=== PATIENT | female | born 1965 | race Caucasian/White ===

== ENCOUNTER → 2018-04-01 | Outpatient (CLI) | payer BC ==
--- NOTE | 2018-04-02 10:03 | MM ---
Reason for exam: screening (asymptomatic). Last mammogram was performed 1 year and 2 months ago. History: Patient had first child at age 33. Family history of breast cancer in maternal aunt at age 60. Taking hormonal contraceptives for 18 years beginning at age 21. Physical Findings: A clinical breast exam by your physician is recommended on an annual basis and results should be correlated with mammographic findings. MG Screening Mammo w CAD Bilateral CC and MLO view(s) were taken. Prior study comparison: January 30, 2017, bilateral MG screening mammo w CAD. November 09, 2015, right breast MG work up mamm w CAD RT. There are scattered fibroglandular densities. There is no discrete abnormality. No significant changes when compared with prior studies. ASSESSMENT: Negative, BI-RAD 1 RECOMMENDATION: Routine screening mammogram of both breasts in 1 year.
== END | disposition home or self-care (01) ==
LOC: RADMAMWWP 11:17
PROVIDERS: ATTEND Obstetrics & Gynecology
DX: Z12.31 Encounter for screening mammogram for malignant neoplasm of breast (principal)
CPT/HCPCS: 77067

== ENCOUNTER → 2019-08-09 | Outpatient (CLI) | payer BC ==
--- NOTE | 2019-08-11 08:14 | MM ---
Reason for exam: screening (asymptomatic). Last mammogram was performed 1 year and 4 months ago. History: Patient had first child at age 33. Family history of breast cancer in maternal aunt at age 60. Taking hormonal contraceptives for 18 years beginning at age 21. Physical Findings: A clinical breast exam by your physician is recommended on an annual basis and results should be correlated with mammographic findings. MG Screening Mammo w CAD Bilateral CC and MLO view(s) were taken. Prior study comparison: April 01, 2018, bilateral MG screening mammo w CAD. January 30, 2017, bilateral MG screening mammo w CAD. The breast tissue is heterogeneously dense. This may lower the sensitivity of mammography. No significant changes when compared with prior studies. ASSESSMENT: Benign, BI-RAD 2 RECOMMENDATION: Routine screening mammogram of both breasts in 1 year.
== END | disposition home or self-care (01) ==
LOC: RADMAMWWP 09:26
PROVIDERS: ATTEND Internal Medicine Geriatric Medicine
DX: Z12.31 Encounter for screening mammogram for malignant neoplasm of breast (principal); Z80.3 Family history of malignant neoplasm of breast
CPT/HCPCS: 77067

== ENCOUNTER 2020-05-05 10:26 | Emergency (ER) | payer BC ==
[2020-05-05 10:32] VITALS: RESP 18; TEMP 97.7
[2020-05-05 11:12] LABS: Basophils # (A) 0.1 k/uL (0-0.2); Basophils % (A) 1 %; Eosinophils # (A) 0.5 k/uL (0-0.7); Eosinophils % (A) 8 %; HCT 41.2 % (34.0-46.0); HGB 14.2 gm/dL (11.4-16.0); Lymphocytes # (A) 1.7 k/uL (1.0-4.8); Lymphocytes % (A) 26 %; MCH 29.2 pg (25.0-35.0); MCHC 34.5 g/dL (31.0-37.0); MCV 84.9 fL (80.0-100.0); Mean Platelet Volume 7.9; Monocytes # (A) 0.5 k/uL (0-1.0); Monocytes % (A) 8 %; Neutrophils # (A) 3.5 k/uL (1.3-7.7); Neutrophils % (A) 55 %; Platelet Count 257 k/uL (150-450); RBC 4.86 m/uL (3.80-5.40); RDW 12.4 % (11.5-15.5); WBC 6.3 k/uL (3.8-10.6)
[2020-05-05 11:20] LABS: Albumin 4.2 g/dL (3.5-5.0); Calcium 9.7 mg/dL (8.4-10.2); Potassium 4.1 mmol/L (3.5-5.1); Total Bilirubin 0.8 mg/dL (0.2-1.3); Total Protein 7.1 g/dL (6.3-8.2)
[2020-05-05] MEDS ORDERED: HYDROmorphone 0.5 MG/0.5 ML SYRINGE IVP PRN (11:26)
[2020-05-05] MEDS ORDERED: SODIUM CHLORIDE 0.9% 1,000 ML IV ONE (11:26)
[2020-05-05] MEDS ORDERED: SODIUM CHLORIDE 0.9% 500 ML 500 ML IV ONE (11:26)
[2020-05-05] MEDS ORDERED: SODIUM CHLORIDE 0.9% 1,000 ML IV SCH (11:30)
--- NOTE | 2020-05-05 11:51 | CT ---
EXAMINATION TYPE: CT abdomen pelvis w con DATE OF EXAM: 05/05/2020 COMPARISON: CT 05/17/2014 HISTORY: RLQ pain with increased urgency of urination and hematuria CT DLP: 645.1 mGycm Automated exposure control for dose reduction was used. TECHNIQUE: Helical acquisition of images from the lung bases through the pelvis have been completed. CONTRAST: Performed without Oral Contrast and with IV Contrast, patient injected with 100 mL of Isovue 300. FINDINGS: LUNG BASES: No significant abnormality is appreciated. AORTA: No significant abnormality is appreciated. Patient is post cholecystectomy. No evident liver mass. No significant abnormality is appreciated. PANCREAS: No significant abnormality is seen. SPLEEN: No significant abnormality is seen. ADRENALS: No significant abnormality is seen. KIDNEYS: Distal right ureteral calculus is present, there is right-sided hydronephrosis and hydrouret er. Distal right ureteral calculus measures 4 to 5 mm REPRODUCTIVE ORGANS: Some heterogeneous enhancement could represent fibroid within the uterus BOWEL: No significant abnormality is seen. Appendix is normal. FREE AIR: No Free Air visible. ASCITES: None visible. PELVIC ADENOPATHY: None visualized. RETROPERITONEAL ADENOPATHY: No Retroperitoneal Adenopathy visible. URINARY BLADDER: No significant abnormality is seen. OSSEOUS STRUCTURES: No significant abnormality is seen. IMPRESSION: OBSTRUCTIVE DISTAL RIGHT URETERAL CALCULUS. POSTOP CHANGES.
[2020-05-05 11:55] LABS: Appearance,Urine Cloudy (Clear); Bacteria,Urine Few /hpf; Bilirubin,Urine Negative (Negative); Blood,Urine Large (Negative); Color,Urine Yellow; Glucose,Urine (UA) Negative (Negative); Ketones,Urine Negative (Negative); Leukocyte Esterase,Urine Negative (Negative); Mucus,Urine Rare /hpf; Nitrite,Urine Negative (Negative); PH, Urine 5.5 (5.0-8.0); Protein,Urine Negative (Negative); RBC,Urine 167 /hpf (0-5); Specific Gravity,Urine 1.009 (1.001-1.035); Squamous Epithelial Cell,Urine 27 /hpf (0-4); Urobilinogen,Urine <2.0 mg/dL (<2.0); WBC,Urine 4 /hpf (0-5)
--- NOTE | 2020-05-05 11:58 | ED ---
Abdominal Pain HPI - General Chief Complaint: Abdominal Pain Stated Complaint: flank pain Time Seen by Provider: 05/05/20 10:37 Source: patient Mode of arrival: ambulatory Limitations: no limitations - History of Present Illness Initial Comments: 54-year-old female presenting today for chief complaint of right lower quadrant pain. Patient states she just seen at Dr. Cosby office and was complaining of right lower quadrant. It came on suddenly last night she states it comes and goes in intensity. She denies dysuria urgency frequency hematuria she denies any specific back pain. She denies any vaginal bleeding. Patient denies any nausea vomiting fevers. Patient is no additional complaints upon arrival patient. While nontoxic distress she states that she has felt better since she was given 60 mg of IM Toradol - Related Data Home Medications Medication Instructions Recorded Confirmed Atorvastatin [Lipitor] 10 mg PO HS 05/05/20 05/05/20 Previous Rx's Medication Instructions Recorded Ketorolac [Toradol] 10 mg PO Q8HR PRN 5 Days #15 tab 05/05/20 Ondansetron Odt [Zofran Odt] 4 mg PO Q8HR PRN 5 Days #15 tab 05/05/20 Allergies Allergy/AdvReac Type Severity Reaction Status Date / Time No Known Allergies Allergy Verified 05/05/20 11:10 Review of Systems ROS Statement: Those systems with pertinent positive or pertinent negative responses have been documented in the HPI. ROS Other: All systems not noted in ROS Statement are negative. Past Medical History Past Medical History: GERD/Reflux, Hyperlipidemia Additional Past Medical History / Comment(s): bronchitis History of Any Multi-Drug Resistant Organisms: None Reported Past Surgical History: Cholecystectomy Additional Past Surgical History / Comment(s): D&C x 2 15 years ago; laser eye surgery Past Anesthesia/Blood Transfusion Reactions: No Reported Reaction Additional Past Anesthesia/Blood Transfusion Reaction / Comment(s): WOKE UP DURING PROCEDURE. Past Psychological History: No Psychological Hx Reported Smoking Status: Never smoker Past Alcohol Use History: Daily, Occasional Past Drug Use History: None Reported - Past Family History Father Family Medical History: Congestive Heart Failure (CHF), COPD Additional Family Medical History / Comment(s): Dad at 66, was heavy ETOH, smoker Mother Family Medical History: Hyperlipidemia, Hypertension General Exam - General Exam Comments Initial Comments: General: The patient is awake and alert, in no distress Eye: +3 mm pupils are equal, round and reactive to light, extra-ocular movements are intact. No nystagmus. There is normal conjunctiva bilaterally. No signs of icterus. Ears, nose, mouth and throat: There are moist mucous membranes and no oral lesions. Neck: The neck is supple, there is no tenderness or JVD. Cardiovascular: There is a regular rate and rhythm. No murmur, rub or gallop is appreciated. Respiratory: Lungs are clear to auscultation, respirations are non-labored, breath sounds are equal. No wheezes, stridor, rales, or rhonchi. Gastrointestinal: Soft, non-distended, RLQ pain to palpation-mild, abdomen without masses or organomegaly noted. There is no rebound or guarding present Musculoskeletal: Normal ROM, no tenderness. Strength 5/5. Sensation intact. R adial and DP pulses equal bilaterally 2+. Neurological: A&O x 3. CN II-XII intact grossly, There are no obvious motor or sensory deficits. Coordination appears grossly intact. Speech is normal. Skin: Skin is warm and dry and no rashes or lesions are noted. Psychiatric: Cooperative, appropriate mood & affect, normal judgment. Limitations: no limitations Course Vital Signs 05/05/20 05/05/20 10:28 13:35 Temperature 97.7 F Pulse Rate 85 65 Respiratory 18 18 Rate Blood Pressure 148/82 154/83 O2 Sat by Pulse 99 97 Oximetry Medical Decision Making - Medical Decision Making Lab stable. Hematuria. No evidence of overt infection. There's obstructing 5 mm distal urethral stone right-sided consistent patient's symptoms. Pain controlled and at this time feel patient is stable for discharge with outpatient urology follow-up patient is agreeable to this care plan and discharge at this time. - Lab Data Result diagrams: 05/05/20 10:57 05/05/20 10:57 Lab Results 05/05/20 05/05/20 05/05/20 Range/Units 10:57 10:57 10:57 WBC 6.3 (3.8-10.6) k/uL RBC 4.86 (3.80-5.40) m/uL Hgb 14.2 (11.4-16.0) gm/dL Hct 41.2 (34.0-46.0) % MCV 84.9 (80.0-100.0) fL MCH 29.2 (25.0-35.0) pg MCHC 34.5 (31.0-37.0) g/dL RDW 12.4 (11.5-15.5) % Plt Count 257 (150-450) k/uL MPV 7.9 Neutrophils % 55 % Lymphocytes % 26 % Monocytes % 8 % Eosinophils % 8 % Basophils % 1 % Neutrophils # 3.5 (1.3-7.7) k/uL Lymphocytes # 1.7 (1.0-4.8) k/uL Monocytes # 0.5 (0-1.0) k/uL Eosinophils # 0.5 (0-0.7) k/uL Basophils # 0.1 (0-0.2) k/uL Sodium 137 (137-145) mmol/L Potassium 4.1 (3.5-5.1) mmol/L Chloride 104 (98-107) mmol/L Carbon Dioxide 24 (22-30) mmol/L Anion Gap 9 mmol/L BUN 14 (7-17) mg/dL Creatinine 0.95 (0.52-1.04) mg/dL Est GFR (CKD-EPI)AfAm 80 (>60 ml/min/1.73 sqM) Est GFR (CKD-EPI)NonAf 70 (>60 ml/min/1.73 sqM) Glucose 114 H (74-99) mg/dL Lactic Ac Sepsis Rflx Plasma Lactic Acid Dhruv (0.7-2.0) mmol/L Calcium 9.7 (8.4-10.2) mg/dL Total Bilirubin 0.8 (0.2-1.3) mg/dL AST 22 (14-36) U/L ALT 20 (4-34) U/L Alkaline Phosphatase 85 (38-126) U/L Total Protein 7.1 (6.3-8.2) g/dL Albumin 4.2 (3.5-5.0) g/dL Amylase 53 (30-110) U/L Lipase 96 (23-300) U/L Urine Color Yellow Urine Appearance Cloudy H (Clear) Urine pH 5.5 (5.0-8.0) Ur Specific [place] 1.009 (1.001-1.035) Urine Protein Negative (Negative) Urine Glucose (UA) Negative (Negative) Urine Ketones Negative (Negative) Urine Blood Large H (Negative) Urine Nitrite Negative (Negative) Urine Bilirubin Negative (Negative) Urine Urobilinogen <2.0 (<2.0) mg/dL Ur Leukocyte Esterase Negative (Negative) Urine RBC 167 H (0-5) /hpf Urine WBC 4 (0-5) /hpf Ur Squamous Epith Cells 27 H (0-4) /hpf Urine Bacteria Few H (None) /hpf Urine Mucus Rare H (None) /hpf 05/05/20 05/05/20 Range/Units 10:57 11:26 WBC (3.8-10.6) k/uL RBC (3.80-5.40) m/uL Hgb (11.4-16.0) gm/dL Hct (34.0-46.0) % MCV (80.0-100.0) fL MCH (25.0-35.0) pg MCHC (31.0-37.0) g/dL RDW (11.5-15.5) % Plt Count (150-450) k/uL MPV Neutrophils % % Lymphocytes % % Monocytes % % Eosinophils % % Basophils % % Neutrophils # (1.3-7.7) k/uL Lymphocytes # (1.0-4.8) k/uL Monocytes # (0-1.0) k/uL Eosinophils # (0-0.7) k/uL Basophils # (0-0.2) k/uL Sodium (137-145) mmol/L Potassium (3.5-5.1) mmol/L Chloride (98-107) mmol/L Carbon Dioxide (22-30) mmol/L Anion Gap mmol/L BUN (7-17) mg/dL Creatinine (0.52-1.04) mg/dL Est GFR (CKD-EPI)AfAm (>60 ml/min/1.73 sqM) Est GFR (CKD-EPI)NonAf (>60 ml/min/1.73 sqM) Glucose (74-99) mg/dL Lactic Ac Sepsis Rflx Y Plasma Lactic Acid Dhruv 2.3 H* (0.7-2.0) mmol/L Calcium (8.4-10.2) mg/dL Total Bilirubin (0.2-1.3) mg/dL AST (14-36) U/L ALT (4-34) U/L Alkaline Phosphatase (38-126) U/L Total Protein (6.3-8.2) g/dL Albumin (3.5-5.0) g/dL Amylase (30-110) U/L Lipase (23-300) U/L Urine Color Urine Appearance (Clear) Urine pH (5.0-8.0) Ur Specific [place] (1.001-1.035) Urine Protein (Negative) Urine Glucose (UA) (Negative) Urine Ketones (Negative) Urine Blood (Negative) Urine Nitrite (Negative) Urine Bilirubin (Negative) Urine Urobilinogen (<2.0) mg/dL Ur Leukocyte Esterase (Negative) Urine RBC (0-5) /hpf Urine WBC (0-5) /hpf Ur Squamous Epith Cells (0-4) /hpf Urine Bacteria (None) /hpf Urine Mucus (None) /hpf Disposition Clinical Impression: RLQ abdominal pain, Urolithiasis Disposition: HOME SELF-CARE Condition: Good Instructions (If sedation given, give patient instructions): Kidney Stones (ED) Additional Instructions: Please use medication as discussed. Please follow-up with family doctor in the next 2 days. Please return to emergency room if the symptoms increase or worsen or for any other concerns. Prescriptions: Ketorolac [Toradol] 10 mg PO Q8HR PRN 5 Days #15 tab PRN Reason: Pain Ondansetron Odt [Zofran Odt] 4 mg PO Q8HR PRN 5 Days #15 tab PRN Reason: Nausea Is patient prescribed a controlled substance at d/c from ED?: No Referrals: Magen Kyle MD [Primary Care Provider] - 1-2 days Mike Gross MD [STAFF PHYSICIAN] - 1-2 days Time of Disposition: 13:50
[2020-05-05] MEDS ORDERED: HYDROmorphone 0.5 MG/0.5 ML SYRINGE IVP STA (12:25)
[2020-05-05 13:36] VITALS: BP 154/83; PULSE 65
== END 2020-05-05 13:36 | disposition home or self-care (01) ==
LOC: EC 10:26
DX: N20.9 Urinary calculus, unspecified (principal); E78.5 Hyperlipidemia, unspecified; Z79.899 Other long term (current) drug therapy; Z90.49 Acquired absence of other specified parts of digestive tract
CPT/HCPCS: 36415; 80053; 82150; 83605; 83690; 85025; 81001; 74177; 99284; 96374; 96376; 96361 ×2; J1170; Q9967

== ENCOUNTER → 2020-07-13 | Outpatient (CLI) | payer BC | END | disposition home or self-care (01) | LOC: RADMAMWWP 14:33 | PROVIDERS: ATTEND Obstetrics & Gynecology | DX: Z53.9 Procedure and treatment not carried out, unspecified reason (principal) ==

== ENCOUNTER 2020-07-18 13:20 | Day surgery (SDC) | payer BC ==
[2020-07-13 15:27] VITALS: BMI 25.8
[~2020-07-18 13:20] MED LIST: DEXAMETHASONE SOD PHOSPHATE 4 MG/ML 1 ML VIAL IV ONE; LACTATED RINGERS 1,000 ML IV SCH; MIDAZOLAM 2 MG/2 ML VIAL IV PRN; ONDANSETRON 4 MG/2 ML VIAL IVP ONE; Pre Op ABX Message 1 EACH MISC MISCELLANE ONE
[2020-07-18] MEDS ORDERED: LIDOCAINE 1% (10MG/ML) FOR IV START INTRADERMA ONE (13:54)
[2020-07-18] MEDS ORDERED: LIDOCAINE 1% INJ 10MG/ML (20 ML MDV) ONE (14:20)
[2020-07-18] MEDS ORDERED: PROPOFOL 10 MG/ML 20 ML VIAL IV ONE (14:20)
[2020-07-18] MEDS ORDERED: MIDAZOLAM 2 MG/2 ML VIAL ONE (14:20)
[2020-07-18] MEDS ORDERED: fentaNYL (PF) 50 MCG/ML 2 ML AMP ONE (14:20)
[2020-07-18] MEDS ORDERED: BUPIVACAINE (PF) 0.25% 30 ML VIAL SQ ONE (14:23)
[2020-07-18] MEDS: HYDROmorphone 0.5 MG/0.5 ML SYRINGE IVP PRN ×3 (16:09→16:23)
[2020-07-18 16:17] VITALS: TEMP 98
--- NOTE | 2020-07-18 16:32 | P.OP ---
Date of Procedure: 07/18/20 Preoperative Diagnosis: Hallux valgus left foot Postoperative Diagnosis: Same Procedure(s) Performed: Arthrodesis midtarsal and tarsometatarsal joints left foot Implants: Lapiplasty medial "U" plate and dorsal straight plate with associated locking screws Anesthesia: FRANCIE Surgeon: Jose Antonio Castaneda Estimated Blood Loss (ml): 3 Pathology: none sent Condition: stable Disposition: PACU Indications for Procedure: Painful bunion left foot unresponsive to conservative care Description of Procedure: The patient was brought into the operating room and placed on the table supine position. Timeout was taken to confirm correct patient identifiers, correct procedure, and correct site of surgery. When the room was in agreement the patient was placed under general anesthesia. A well-padded tourniquet was placed on the left calf. Then 20 mL of 0.25% Marcaine was injected as a left ankle block. Then the left leg was prepped and draped usual manner. The left leg was then exsanguinated and the tourniquet inflated to 250 mmHg. Tension was directed over the dorsomedial aspect of the midfoot, where a 6 cm linear incision was made just medial to the extensor hallucis longus tendon and over the first tarsometatarsal joint. The incision was deepened down to the subcutaneous layer careful to identify, avoid, and retract any neurovascular structures and cauterize any bleeding vessels. Blunt dissection was continued to expose the soft tissue over the tarsometatarsal joint. A linear incision was made to the periosteum and capsule medial to the long extensor tendon to the great toe. Subperiosteal dissection was performed to expose the joint. A small pocket was placed on the lateral side of the base of the first metatarsal for the placement of the fulcrum. An osteotome was used to free the soft tissue attachments around the first tarsometatarsal joint. A sagittal saw was then used to plane the joint surfaces to allow for rotational correction. A K wire was placed in the base of the first metatarsal approximate 1 cm distal to the joint line. Under fluoroscopic visualization the joystick was used to rotate the first metatarsal and the frontal plane to determine whether or not the sesamoid apparatus was correct. The fulcrum was then placed on the lateral side of the base of the first metatarsal. The positioning was confirmed under fluoroscopy. Once it was noted that there was good rotation present a small stab incision was then made on the lateral side of the second metatarsal just distal to the incision line previously made. It was deepened on the lateral side of the second metatarsal and then the intermetatarsal angle reduction clamp was placed over the lateral side of second metatarsal and the other portion on the medial flare of the first metatarsal base. Then the reduction clamp was used to close the intermetatarsal angle while simultaneously holding the frontal plane correction utilizing the K wire. Under direct fluoroscopic visualization was noted the intermetatarsal angle corrected well and that the sesamoid apparatus was indeed plantar to the first metatarsal and correct anatomic alignment. An axial sesamoid view with x-ray was also done which showed the sesamoids within the appropriate grooves on the plantar surface of the first metatarsal head. Also there was appropriate medial gapping of the first tarsometatarsal joint without any abnormal plantar gapping. The joint seeker was then placed through the first tarsometatarsal joint as far lateral as possible which allowed it to but up against the fulcrum. Once that was positioned the cut guide was placed over the joint seeker. Under fluoroscopic visualization the cut guide was aligned appropriately along the long axis of the first metatarsal and then fixation pins were placed in the cut guide both distally and proximally. Fluoroscopic imaging confirmed proper placement of the cut guide with appropriate amounts of bone to be resected on both the distal and proximal aspects of the arthrodesis site. Another guidewires placed proximally to lock the cutting guide in place I did not migrate dorsally. A sagittal saw was used through the cut guide to resect the articular surfaces of the base of the first metatarsal and the distal aspect of the medial cuneiform. Locking pin was removed and then the cut guide was removed leaving the other pins in place. The compressions/distractor was then placed over the guidepins and the joint distracted to allow access to the resected pieces of bone. Both portions of bone a removed completely and taken from the surgical field. The wound was then irrigated with antibiotic saline. A 2.0 mm drill bit was then used to fenestrate both surfaces to promote bleeding and bony healing. Then the compression/distractor was placed in a compression mode in the arthrodesis was reduced while holding the great toe maximally dorsiflexed. This is done until the bone segments fully compressed and then fluoroscopy was used to confirm that there was full bony contact without any gapping noted. Once that was confirmed a threaded olive wire was then placed across the joint to maintain the position. A lateral fluoroscopic view was also used to make sure there was any plantar gapping. The medial "U" plate was then placed over the first tarsometatarsal joint and then temporarily fixated. Fluoroscopy was used to make sure that the plate was properly positioned. Once that was determined drill holes were made on either side of the arthrodesis site were locking screws were placed. The temporary fixation was removed and the remaining 2 holes in the medial plate wer e filled with additional locking screws. The compression device was then removed and the olive wire was repositioned so that the dorsal plate could be properly aligned. The dorsal plate was positioned and temporarily fixated. Fluoroscopy was used to make sure that the plate was properly aligned and that did not penetrate the intercuneiform joint. Once properly positioned drill holes were made first on the holes closest to the arthrodesis site were the locking screws were placed the temporary fixation was removed and then the locking screws were placed distally however the proximal was interfere with the screw from another plate so that area was left open. Stress testing of the intercuneiform joint indicated that there was instability. The decision was made to put and intercuneiform screw in place. The guidewire was then placed medially to avoid the plate and then it was used to transverse the medial cuneiform into the intermediate cuneiform. Once the pin was in place the reduct ion clamp was used to maintain the reduction of the cuneiform joint. Then the screw was placed across the guidewire and advanced until there was good bite and that the screw head was flush in the area compressed. The reduction clamp and the guidewire removed and stress testing again that noted no gapping at the intercuneiform joint. The wound is then irrigated with antibiotic saline. Deep closure done with 2-0 Vicryl. Subcu closure done with 4-0 Monocryl. Skin closure done with 3-0 Stratafix in a running subcuticular manner. A single Monocryl stitch was used to close a small stab incision was second metatarsal. Excision glue was applied across the incisions allowed to dry then Steri-Strips are placed across incisions. Arthrex jumpstart dressing was applied over the incisions and a dry sterile dressing applied left foot. Tourniquet was released and capillary refill return to all digits on the left foot. Ice and below-knee fracture boot ankle neutral position. Anesthesia was reversed and the patient was taken recovery with vital signs stable.
[2020-07-18] MEDS ORDERED: HYDROcodone/APAP 5-325MG 1 EACH TAB ONE (17:10)
[2020-07-18] MEDS ORDERED: HYDROcodone/APAP 5-325MG 1 EACH TAB PO ONE (17:11)
[2020-07-18 17:22] VITALS: BP 139/88; PULSE 63; RESP 16
== END 2020-07-18 17:29 | disposition home or self-care (01) ==
LOC: OR 13:20
PROVIDERS: ATTEND Podiatrist
DX: M20.12 Hallux valgus (acquired), left foot (principal); M19.90 Unspecified osteoarthritis, unspecified site; E78.5 Hyperlipidemia, unspecified; R63.5 Abnormal weight gain; Z79.899 Other long term (current) drug therapy; Z98.890 Other specified postprocedural states
CPT/HCPCS: 81025; 28740; C1713; J2250; J1100; J0690; J2405; J2001; J3010; J2704; J1170

== ENCOUNTER → 2020-10-24 | Outpatient (CLI) | payer BC ==
--- NOTE | 2020-10-29 11:17 | MM ---
Reason for exam: screening (asymptomatic). Last mammogram was performed 1 year and 3 months ago. History: Patient is postmenopausal and had first child at age 33. Family history of breast cancer in maternal aunt at age 60. Took hormonal contraceptives for 18 years beginning at age 21. Physical Findings: A clinical breast exam by your physician is recommended on an annual basis and results should be correlated with mammographic findings. MG Screening Mammo w CAD Bilateral CC and MLO view(s) were taken. Prior study comparison: August 09, 2019, bilateral MG screening mammo w CAD. April 01, 2018, bilateral MG screening mammo w CAD. There are scattered fibroglandular densities. No significant changes when compared with prior studies. ASSESSMENT: Negative, BI-RAD 1 RECOMMENDATION: Routine screening mammogram of both breasts in 1 year.
== END | disposition home or self-care (01) ==
LOC: RADMAMWWP 14:52
PROVIDERS: ATTEND Obstetrics & Gynecology
DX: Z12.31 Encounter for screening mammogram for malignant neoplasm of breast (principal); Z80.3 Family history of malignant neoplasm of breast
CPT/HCPCS: 77067

== ENCOUNTER 2021-02-15 05:41 | Day surgery (SDC) | payer BC ==
[2021-02-14 08:20] VITALS: BMI 25.0
[~2021-02-15 05:41] MED LIST changes: -DEXAMETHASONE SOD PHOSPHATE 4 MG/ML 1 ML VIAL IV ONE; -LACTATED RINGERS 1,000 ML IV SCH; -MIDAZOLAM 2 MG/2 ML VIAL IV PRN; -ONDANSETRON 4 MG/2 ML VIAL IVP ONE
[2021-02-15] MEDS ORDERED: DEXAMETHASONE SOD PHOSPHATE 4 MG/ML 1 ML VIAL IV ONE (06:10)
[2021-02-15] MEDS ORDERED: SCOPOLAMINE 1.5MG/72HR PATCH TRANSDERM ONE (06:10)
[2021-02-15] MEDS ORDERED: MIDAZOLAM 2 MG/2 ML VIAL IV PRN (06:10)
[2021-02-15] MEDS ORDERED: ONDANSETRON 4 MG/2 ML VIAL IVP ONE (06:10)
[2021-02-15] MEDS ORDERED: LACTATED RINGERS 1,000 ML IV SCH (06:10)
[2021-02-15] MEDS ORDERED: HYDROmorphone 0.5 MG/0.5 ML SYRINGE IVP PRN (07:00)
[2021-02-15] MEDS ORDERED: PHENYLEPHRINE-0.9% NACL SYG 1,000 MCG/10 ML SYRINGE ONE (07:20)
[2021-02-15] MEDS ORDERED: .fentaNYL (PF) 50 MCG/ML 2 ML AMP ONE (07:20)
[2021-02-15] MEDS ORDERED: ePHEDrine 50 MG/ML 1 ML AMP ONE (07:20)
[2021-02-15] MEDS ORDERED: LIDOCAINE 1% INJ 10MG/ML (20 ML MDV) ONE (07:20)
[2021-02-15] MEDS ORDERED: PROPOFOL 10 MG/ML 20 ML VIAL IV ONE (07:20)
[2021-02-15] MEDS ORDERED: MIDAZOLAM 2 MG/2 ML VIAL ONE (07:20)
[2021-02-15] MEDS ORDERED: SODIUM CHLORIDE 0.9% 100 ML with ceFAZolin 2,000 MG IV ONE ×2 (07:23)
[2021-02-15] MEDS ORDERED: BUPIVACAINE (PF) 0.25% 30 ML VIAL SQ ONE (07:35)
[2021-02-15 09:16] VITALS: TEMP 96.7
[2021-02-15 09:17] VITALS: RESP 16
--- NOTE | 2021-02-15 09:21 | P.OP ---
Date of Procedure: 02/15/21 Preoperative Diagnosis: Hallux valgus right foot Postoperative Diagnosis: Same Procedure(s) Performed: Modified Lapidus bunionectomy right foot Implants: Lapiplasty plates and screws Anesthesia: FRANCIE Surgeon: Jose Antonio Castaneda Estimated Blood Loss (ml): 2 Pathology: none sent Condition: stable Disposition: PACU Description of Procedure: The patient was brought into the operating room and placed on the table supine position. Timeout was taken to confirm correct patient identifiers, correct procedure, and correct site of surgery. When all staff in the room were in agreement with the timeout, the patient was induced and placed under general anesthesia. An ankle block was performed with 20cc of Marcaine. A well-padded tourniquet was placed on the right ankle and then the right foot was prepped and draped in the usual manner. The foot was ensanguined with an Esmarch bandage and the tourniquet inflated to 250 mmHg. Attention was first directed over the medial aspect of the first metatarsal phalangeal joint, where a linear incision was made between the neurovascular structures. It was deepened down to the saphenous tissue careful to identify, avoid, and retract any neurovascular structures and cauterize any bleeding vessels. Dissection was continued down to the first metatarsal phalangeal joint capsule. 2 semi-elliptical converging incisions are made along the medial aspect of the first metatarsal phalangeal joint and then the interposing piece of capsule was removed. The capsule was reflected from its osseous attachments on the medial plantar aspects of the first metatarsal head. The sesamoid apparatus was distracted plantarly and then the lateral sesamoid collateral ligament was transected and a lateral capsulotomy performed. Attention was directed over the dorsal aspect of the foot where a 6 cm incision was made centered over the tarsometatarsal joint medial to the extensor hallucis longus tendon. The incision was deepened down to the saphenous tissue careful to identify, avoid, and retract any neurovascular structures and cauterize any bleeding vessels. Dissection was then continued down to the periosteum and capsule and the same area. An incision was made medial to the extensor hallucis longus tendon to these tissues. Subperiosteal dissection was performed to expose the first tarsometatarsal joint. An osteotome was inserted into the joint to free the soft tissue attachments. A wire was placed through the medial aspect of the base of the first metatarsal to act as a joystick for frontal plane correction of the deformity. A fulcrum/joint seeker was then placed into the first tarsometatarsal joint. A Small stab incision was made on the lateral side of second metatarsal and bluntly dissected along the second metatarsal. The intermetatarsal angle reduction clamp was then placed over the second me tatarsal and then medially on the flare of the base of the first metatarsal. While simultaneously holding the frontal plane correction and position the reduction clamp was advanced to close the intermetatarsal angle. Fluoroscopic imaging was used to check the amount of correction. Once the frontal plane rotation as well as the transverse plane to 40 were fully corrected a guidepin was then placed through the reduction clamp to lock it in place. The cut guide was placed over the joint seeker and held in place with pins. Fluoroscopy was used to check the alignment to make sure there was enough bone resection. Once adequate a third pin was placed through the cut guide to lock it in place. A sagittal saw was then used to resect the articular surface of the base of first metatarsal and distal medial cuneiform. The locking pin for the cut guide was removed and then the cut guide was removed. Joint seeker was also removed at this time. The distraction device was placed over the pins and the joint opened to allow access for the cut portions of bone. The cut portions of bone were removed. And then the wound was explored for any remaining pieces of bone. Once fully clean that wound is irrigated thoroughly with antibiotic saline. Then a 2 mm drill bit was used to aggressively fenestrate the conjoining surfaces of the arthrodesis site. The pin through the angle reduction clamp was removed and the fulcrum reinserted at the lateral side of the base of the first metatarsal. Then the distractor was reversed and then was used to compressed the arthrodesis site while holding the great toe dorsiflexed. The compression was done until the arthrodesis site was fully compressed. Once fully compressed fluoroscopy was used to make sure that the correction was maintained at that there was indeed adequate bony contact at the arthrodesis site. Lateral view also show that there was no plantar angulation. Once that was satisfactory of threaded olive wire was placed from dorsal proximal to distal plantar for point of fixation. Then the medial plate was positioned over the arthrodesis site and under direct fluoroscopic visualization was adjusted until the placement was criselda al then temporarily fixated. The 2 internal screws were placed first. Then the temporary fixation was removed and the most distal and proximal screws inserted. Fluoroscopic imaging showed that the plate was properly positioned. Then the distractor and guidepins were removed and then the dorsal plate was positioned under fluoroscopy and adjusted into ideal alignment and then temporarily fixated . The 2 screws closest to the arthrodesis site were placed first and then the temporary fixation removed and the most distal and proximal screws inserted through the plate. The olive wire was then removed and fluoroscopic imaging was used to check the position of the plates and the overall correction of the deformity. Intermetatarsal angle was corrected, the sesamoids were properly aligned and there was good compression maintain at the arthrodesis site. At this point stresses placed between the second and first metatarsals to see if there is any cuneiform instability. There was gapping noted at the cuneiform therefore a independent cannulated screw was inserted from medial to lateral through the intercuneiform joint. Fluoroscopy confirmed the positioning. The area was stressed under fluoroscopy again and there was no excessive movement. All wounds were then thoroughly irrigated with antibiotic saline. The first metatarsal phalangeal joint capsule was closed with 0 Vicryl while holding the great toe to correct position. The deep tissue on the dorsal incision was also closed with 0 Vicryl. All incisions were closed with 4-0 Monocryl subcutaneously. The medial dorsal incisions were closed with 4-0 Stratafix in a running subcuticular manner. Dermal glue was applied to all incisions. Steri- Strips are placed across all incisions. An Arthrex jumpstart dressing was plac ed over all incisions. Then a bulky dry dressing applied to the left foot. Tourniquet was released and capillary refill return to all digits on the right foot. Then the patient was placed in a well-padded, well molded plaster posterior mold/sugar tong splint. Ankle was held in neutral position until the splint was dried. Then anesthesia was reversed and the patient was taken recovery with vital signs stable.
[2021-02-15] MEDS ORDERED: HYDROcodone/APAP 5-325MG 1 EACH TAB ONE (10:28)
[2021-02-15 10:45] VITALS: BP 137/88; PULSE 67
== END 2021-02-15 11:03 | disposition home or self-care (01) ==
LOC: OR 05:41
PROVIDERS: ATTEND Podiatrist
DX: M20.11 Hallux valgus (acquired), right foot (principal)
CPT/HCPCS: 28750; C1713; J2250; J1100; J2405; J0690; J2001; J3010; J2370; J2704

== ENCOUNTER → 2022-01-08 | Outpatient (CLI) | payer BC ==
--- NOTE | 2022-01-09 11:28 | MM ---
Reason for Exam: Additional evaluation requested from abnormal screening. Last screening mammogram was performed less than 1 month ago. Patient History: Menarche at age 15. First Full-Term at age 33. Late child-bearing (after 30). Postmenopausal. Hormonal Contraceptives, starting at age 21 for 18 years. Maternal aunt had breast cancer, age 60. Risk Values: Darcy 5 year model risk: 1.6%. NCI Lifetime model risk: 11.4%. Tissue Density: Right: There are scattered fibroglandular densities. Findings: Analyzed By CAD. No distinct new lesion persists on additional views. Overall Assessment: Negative, BI-RAD 1 Management: Screening Mammogram of both breasts in 1 year. Back on annual schedule. Results were given to the patient verbally at the time of exam. Electronically signed and approved by: Hector Day M.D.
== END | disposition home or self-care (01) ==
LOC: RADMAMWWP 10:23
PROVIDERS: ATTEND Obstetrics & Gynecology
DX: R92.8 Other abnormal and inconclusive findings on diagnostic imaging of breast (principal); Z78.0 Asymptomatic menopausal state; Z80.3 Family history of malignant neoplasm of breast
CPT/HCPCS: 77061; 77065

== ENCOUNTER → 2023-01-02 | Outpatient (CLI) | payer BC ==
--- NOTE | 2023-01-05 16:13 | MM ---
Reason for Exam: Screening (asymptomatic). Last screening mammogram was performed 12 month(s) ago. Patient History: Menarche at age 15. First Full-Term at age 33. Late child-bearing (after 30). Postmenopausal. Patient has history of breast feeding. Hormonal Contraceptives, starting at age 21 for 18 years. Maternal aunt had breast cancer, age 60. Risk Values: Darcy 5 year model risk: 1.6%. NCI Lifetime model risk: 11.2%. Prior Study Comparison: 10/24/2020 Bilateral Screening Mammogram, [facility]. 01/01/2022 Bilateral MG screening mammo w CAD, [facility]. 01/08/2022 Right MG 3D work up w/cad RT, [facility]. Tissue Density: There are scattered fibroglandular densities. Findings: Analyzed By CAD. Pattern appears symmetrical and stable. No significant change is evident. No suspicious groups of microcalcifications, spiculated or lobular masses, architectural distortion or other secondary signs of malignancy are mammographically apparent. Overall Assessment: Benign, BI-RAD 2 Management: Screening Mammogram of both breasts in 1 year. A negative mammogram report should not preclude additional follow up of suspicious palpable abnormalities. Patient should continue monthly self breast exam. A clinical breast exam by your physician is recommended on an annual basis and results should be correlated with mammographic findings. Electronically signed and approved by: Perez Hernandez D.O. Radiologis
== END | disposition home or self-care (01) ==
LOC: RADMAMWWP 10:57
PROVIDERS: ATTEND Obstetrics & Gynecology
DX: Z12.31 Encounter for screening mammogram for malignant neoplasm of breast (principal); Z78.0 Asymptomatic menopausal state; Z80.3 Family history of malignant neoplasm of breast
CPT/HCPCS: 77063; 77067

== ENCOUNTER → 2024-01-14 | Outpatient (CLI) | payer BC ==
--- NOTE | 2024-01-18 09:30 | MM ---
Reason for Exam: Screening (asymptomatic). Last screening mammogram was performed 12 month(s) ago. Patient History: Menarche at age 15. First Full-Term at age 33. Late child-bearing (after 30). Postmenopausal. Patient has history of breast feeding. Hormonal Contraceptives, starting at age 21 for 18 years. Maternal aunt had breast cancer, age 60. Risk Values: Darcy 5 year model risk: 1.7%. NCI Lifetime model risk: 10.9%. Prior Study Comparison: 01/01/2022 Bilateral MG screening mammo w CAD, [facility]. 01/08/2022 Right MG 3D work up w/cad RT, [facility]. 01/02/2023 Bilateral MG 3D screening mammo w/cad, [facility]. Tissue Density: There are scattered areas of fibroglandular density. Findings: Analyzed By CAD. Right breast: There is no suspicious group of microcalcifications or new suspicious mass. Left breast: There is no suspicious group of microcalcifications or new suspicious mass. Overall Assessment: Negative, BI-RAD 1 Management: Screening Mammogram of both breasts in [address] [facility] will attempt to contact patient to return for supplemental views and ultrasound if indicated. Patient should continue monthly self-breast exams. A clinical breast exam by your physician is recommended on an annual basis. This exam should not preclude additional follow-up of suspicious palpable abnormalities. Note on Darcy scores and lifetime risk: 1. A Darcy score greater than 3% is considered moderate risk. If this is the case, consider specialist referral to assess eligibility for a risk reducing agent. 2. If overall lifetime risk for the development of breast cancer is 20% or higher, the patient may qualify for future screening with alternating mammogram and breast MRI. [facility], , 01/18/2024 9:27 AM. Electronically signed and approved by: Hernan Baxter DO
== END | disposition home or self-care (01) ==
LOC: RADMAMWWP 12:59
PROVIDERS: ATTEND Obstetrics & Gynecology
DX: Z12.31 Encounter for screening mammogram for malignant neoplasm of breast (principal); R92.323 Mammographic fibroglandular density, bilateral breasts; Z78.0 Asymptomatic menopausal state; Z80.3 Family history of malignant neoplasm of breast
CPT/HCPCS: 77063; 77067